=== PATIENT | male | born 1960 | race Hispanic/Latino ===

== ENCOUNTER 2018-02-21 11:13 | Emergency (ER) | payer SELFPAY ==
[~2018-02-21] VITALS: Ht 152.4 cm; Wt 65.0 kg
[~2018-02-21 11:13] MED LIST: GLUCOTROL XL5 MG PO; KEFLEX500 MG PO; METFORMIN1000 MG PO; METFORMIN500 MG PO; PERCOCET 5/321 COMBO PO; SIMVASTATIN20 MG PO
[2018-02-21 12:22] LABS: IMMATURE GRANULOCYTES 0.2 % (0.0-5.0); MEAN CELL VOLUME 92.8 fL CALC (80.0-100.0); MEAN CORPUSCULAR HGB 32.4 pG CALC (26.0-32.0); MEAN CORPUSCULAR HGB CONC 34.9 g/L CALC (32.0-36.0); NEUT# 2.36 thou/uL (1.82-7.42); RED BLOOD COUNT 5.15 mill/uL (4.70-6.10); RED CELL DISTRI WIDTH 12.2 % (11.5-15.5)
[2018-02-21 12:26] LABS: HEMATOCRIT 47.8 % (39.0-50.0); HEMOGLOBIN 16.7 g/dl (14.0-18.0)
[2018-02-21 12:39] LABS: ALKALINE PHOSPHATASE 236 u/l (38-126); ANION GAP 11 (6-22 (CALC)); BUN 12 mg/dL (9-20); BUN/CREATININE RATIO 28 (12-20 (CALC)); C-REACTIVE PROTEIN 1.5 mg/dL (0-0.9); CARBON DIOXIDE 27 mmol/l (22-30); CHLORIDE 107 mmol/l (95-108); CREATININE 0.4 mg/dL (0.7-1.3); GFR > 60 ML/MIN (>=60 (CALC)); GFR FOR AFR.AMER. > 60 ML/MIN (>=60 (CALC)); POTASSIUM 4.2 mmol/l (3.5-5.1); SODIUM 141 mmol/l (137-146); TOTAL PROTEIN 7.6 g/dL (6.3-8.2)
[2018-02-21 12:43] LABS: ALBUMIN 3.6 g/dL (3.2-5.0); SGOT/AST 94 u/l (17-59)
[2018-02-21] MEDS ORDERED: CLEOCIN300 MG PO (13:36)
[2018-02-21 15:06] VITALS: BP 127/72
== END 2018-02-21 15:06 | disposition home or self-care (01) | DRG 639 ==
LOC: ED 11:13 → ED-I 12:55 → ED 15:06
PROVIDERS: Emergency Medicine
DX: E11.621 Type 2 diabetes mellitus with foot ulcer (principal); L97.519 Non-pressure chronic ulcer of other part of right foot with unspecified severity